=== PATIENT | female | born 1950 | race Caucasian/White ===

== ENCOUNTER 2024-03-19 05:34 | Outpatient (REF) | payer OTHER, SELFPAY ==
[2024-03-19 05:40] LABS: MANUAL DIFF FLAG NO
[2024-03-19 06:03] LABS: Basophils Percent Auto 0.7 % (0-2); Eosinophils Absolute Auto 0.2 X10*3/uL (0.0-0.4); Eosinophils Percent Auto 3.3 % (0-4); Hematocrit 35.9 % (37.0-47.0); Imm Gran Abs Auto 0.03 X10*3/uL (0.00-0.03); Imm Gran Pct Auto 0.5 % (0.0-0.4); Lymphocytes Absolute Auto 1.1 X10*3/uL (1.2-4.9); Lymphocytes Percent Auto 19.5 % (20-40); Mean Corpuscular HGB Conc 30.6 g/dl (31.0-35.0); Mean Corpuscular Volume 78.4 fL (80.0-98.0); Mean Platelet Volume 10.6 fL (9.4-12.3); Monocytes Absolute Auto 0.5 X10*3/uL (0.1-1.2); Monocytes Percent Auto 9.6 % (2-11); Neutrophils Absolute Auto 3.7 x10*3/uL (2.0-8.3); Neutrophils Percent Auto 66.4 % (45-73); Platelet Count 264 X10*3/uL (160-400); Red Blood Count 4.58 X10*6/uL (4.20-5.50); Red Cell Distribution Width 26.5 % (11.0-16.0); White Blood Count 5.5 X10*3/uL (4.8-10.8)
[2024-03-19 06:24] LABS: Alanine Aminotransferase 12 U/L (0-31); Albumin Level 3.8 g/dL (3.5-5.0); Alkaline Phosphatase 65 U/L (39-117); Anion Gap 15 (12-20); Aspartate Amino Transferase 14 U/L (5-31); Bilirubin Total 0.5 mg/dL (0.0-1.0); Blood Urea Nitrogen 19 mg/dL (9-16); Calcium 9.5 mg/dL (8.4-10.2); Carbon Dioxide 25 mmol/L (22-29); Chloride 107 mmol/L (96-108); Estimated Glomerular Filt Rate > 60; Glucose Random 99 mg/dL (60-115); Potassium 3.5 mmol/L (3.3-5.1); Sodium 143 mmol/L (135-145); Total Protein 6.6 g/dL (6.5-8.0)
== END 2024-03-19 05:35 | disposition home or self-care (01) ==
LOC: HO.MMNH1L 05:34
PROVIDERS: Visit Provider Hospitalist
DX: E03.9 Hypothyroidism, unspecified (principal); I10 Essential (primary) hypertension; I63.9 Cerebral infarction, unspecified
CPT/HCPCS: 36415; 80053; 85025

== ENCOUNTER 2024-03-24 06:46 | Outpatient (REF) | payer OTHER, SELFPAY ==
[2024-03-24 06:04] LABS: MANUAL DIFF FLAG NO
[2024-03-24 07:14] LABS: Basophils Absolute Auto 0.1 X10*3/uL (0.0-0.2); Basophils Percent Auto 0.9 % (0-2); Eosinophils Absolute Auto 0.2 X10*3/uL (0.0-0.4); Eosinophils Percent Auto 3.3 % (0-4); Hematocrit 34.2 % (37.0-47.0); Hemoglobin 10.3 g/dl (12.0-16.0); Imm Gran Abs Auto 0.03 X10*3/uL (0.00-0.03); Imm Gran Pct Auto 0.4 % (0.0-0.4); Lymphocytes Absolute Auto 1.3 X10*3/uL (1.2-4.9); Lymphocytes Percent Auto 19.1 % (20-40); Mean Corpuscular HGB Conc 30.1 g/dl (31.0-35.0); Mean Corpuscular Hemoglobin 24.2 pg (27.0-33.0); Mean Corpuscular Volume 80.3 fL (80.0-98.0); Mean Platelet Volume 11.2 fL (9.4-12.3); Monocytes Absolute Auto 0.7 X10*3/uL (0.1-1.2); Monocytes Percent Auto 11.1 % (2-11); Neutrophils Absolute Auto 4.4 x10*3/uL (2.0-8.3); Neutrophils Percent Auto 65.2 % (45-73); Platelet Count 236 X10*3/uL (160-400); Red Blood Count 4.26 X10*6/uL (4.20-5.50); Red Cell Distribution Width 25.5 % (11.0-16.0); White Blood Count 6.7 X10*3/uL (4.8-10.8)
[2024-03-24 07:20] LABS: Anion Gap 13 (12-20); Blood Urea Nitrogen 23 mg/dL (9-16); Calcium 8.8 mg/dL (8.4-10.2); Carbon Dioxide 26 mmol/L (22-29); Chloride 109 mmol/L (96-108); Estimated Glomerular Filt Rate > 60; Glucose Random 81 mg/dL (60-115); Potassium 3.7 mmol/L (3.3-5.1); Sodium 144 mmol/L (135-145)
== END 2024-03-24 06:47 | disposition home or self-care (01) ==
LOC: HO.MMNH1L 06:46
PROVIDERS: Visit Provider Hospitalist
DX: I10 Essential (primary) hypertension (principal); E03.9 Hypothyroidism, unspecified; I63.9 Cerebral infarction, unspecified
CPT/HCPCS: 36415; 80048; 85025

== ENCOUNTER 2024-03-31 06:27 | Outpatient (REF) | payer OTHER, SELFPAY ==
[2024-03-31 06:01] LABS: MANUAL DIFF FLAG NO
[2024-03-31 07:06] LABS: Basophils Percent Auto 0.6 % (0-2); Eosinophils Absolute Auto 0.2 X10*3/uL (0.0-0.4); Eosinophils Percent Auto 2.8 % (0-4); Hematocrit 32.4 % (37.0-47.0); Hemoglobin 10.1 g/dl (12.0-16.0); Imm Gran Abs Auto 0.03 X10*3/uL (0.00-0.03); Imm Gran Pct Auto 0.4 % (0.0-0.4); Lymphocytes Absolute Auto 1.5 X10*3/uL (1.2-4.9); Lymphocytes Percent Auto 21.2 % (20-40); Mean Corpuscular HGB Conc 31.2 g/dl (31.0-35.0); Mean Corpuscular Volume 80.2 fL (80.0-98.0); Mean Platelet Volume 11.5 fL (9.4-12.3); Monocytes Absolute Auto 0.6 X10*3/uL (0.1-1.2); Monocytes Percent Auto 7.9 % (2-11); Neutrophils Absolute Auto 4.8 x10*3/uL (2.0-8.3); Neutrophils Percent Auto 67.1 % (45-73); Platelet Count 242 X10*3/uL (160-400); Red Blood Count 4.04 X10*6/uL (4.20-5.50); Red Cell Distribution Width 25.5 % (11.0-16.0); White Blood Count 7.1 X10*3/uL (4.8-10.8)
[2024-03-31 07:29] LABS: Anion Gap 11 (12-20); Blood Urea Nitrogen 18 mg/dL (9-16); Calcium 8.7 mg/dL (8.4-10.2); Carbon Dioxide 25 mmol/L (22-29); Chloride 110 mmol/L (96-108); Estimated Glomerular Filt Rate > 60; Glucose Random 78 mg/dL (60-115); Potassium 3.5 mmol/L (3.3-5.1); Sodium 142 mmol/L (135-145)
== END 2024-03-31 06:28 | disposition home or self-care (01) ==
LOC: HO.MMNH1L 06:27
PROVIDERS: Visit Provider Hospitalist
DX: E03.9 Hypothyroidism, unspecified (principal); I10 Essential (primary) hypertension; I63.9 Cerebral infarction, unspecified
CPT/HCPCS: 36415; 80048; 85025

== ENCOUNTER 2024-04-07 06:23 | Outpatient (REF) | payer OTHER, SELFPAY ==
[2024-04-07 06:02] LABS: MANUAL DIFF FLAG NO
[2024-04-07 07:02] LABS: Basophils Percent Auto 0.5 % (0-2); Eosinophils Absolute Auto 0.2 X10*3/uL (0.0-0.4); Hematocrit 34.8 % (37.0-47.0); Hemoglobin 10.4 g/dl (12.0-16.0); Imm Gran Abs Auto 0.04 X10*3/uL (0.00-0.03); Imm Gran Pct Auto 0.5 % (0.0-0.4); Lymphocytes Absolute Auto 1.4 X10*3/uL (1.2-4.9); Mean Corpuscular HGB Conc 29.9 g/dl (31.0-35.0); Mean Corpuscular Hemoglobin 24.5 pg (27.0-33.0); Mean Corpuscular Volume 82.1 fL (80.0-98.0); Mean Platelet Volume 11.8 fL (9.4-12.3); Monocytes Absolute Auto 0.7 X10*3/uL (0.1-1.2); Monocytes Percent Auto 8.3 % (2-11); Neutrophils Absolute Auto 5.5 x10*3/uL (2.0-8.3); Neutrophils Percent Auto 69.7 % (45-73); Platelet Count 247 X10*3/uL (160-400); Red Blood Count 4.24 X10*6/uL (4.20-5.50); Red Cell Distribution Width 25.5 % (11.0-16.0); White Blood Count 7.9 X10*3/uL (4.8-10.8)
[2024-04-07 07:24] LABS: Anion Gap 12 (12-20); Blood Urea Nitrogen 24 mg/dL (9-16); Carbon Dioxide 23 mmol/L (22-29); Chloride 110 mmol/L (96-108); Estimated Glomerular Filt Rate > 60; Glucose Random 67 mg/dL (60-115); Potassium 3.6 mmol/L (3.3-5.1); Sodium 141 mmol/L (135-145)
== END 2024-04-07 06:24 | disposition home or self-care (01) ==
LOC: HO.MMNH1L 06:23
PROVIDERS: Visit Provider Hospitalist
DX: I10 Essential (primary) hypertension (principal); E03.9 Hypothyroidism, unspecified
CPT/HCPCS: 36415; 80048; 85025

== ENCOUNTER 2024-06-02 07:06 | Outpatient (REF) | payer OTHER, SELFPAY ==
[2024-06-02 06:17] LABS: MANUAL DIFF FLAG NO
[2024-06-02 07:00] LABS: Basophils Percent Auto 0.6 % (0-2); Eosinophils Absolute Auto 0.2 X10*3/uL (0.0-0.4); Eosinophils Percent Auto 3.4 % (0-4); Hematocrit 35.8 % (37.0-47.0); Hemoglobin 11.1 g/dl (12.0-16.0); Imm Gran Abs Auto 0.03 X10*3/uL (0.00-0.03); Imm Gran Pct Auto 0.4 % (0.0-0.4); Lymphocytes Absolute Auto 1.5 X10*3/uL (1.2-4.9); Lymphocytes Percent Auto 21.8 % (20-40); Mean Corpuscular Hemoglobin 26.8 pg (27.0-33.0); Mean Corpuscular Volume 86.5 fL (80.0-98.0); Mean Platelet Volume 11.7 fL (9.4-12.3); Monocytes Absolute Auto 0.7 X10*3/uL (0.1-1.2); Monocytes Percent Auto 9.9 % (2-11); Neutrophils Absolute Auto 4.5 x10*3/uL (2.0-8.3); Neutrophils Percent Auto 63.9 % (45-73); Platelet Count 255 X10*3/uL (160-400); Red Blood Count 4.14 X10*6/uL (4.20-5.50); Red Cell Distribution Width 18.1 % (11.0-16.0); White Blood Count 7.1 X10*3/uL (4.8-10.8)
[2024-06-02 07:07] LABS: Anion Gap 13 (12-20); Blood Urea Nitrogen 23 mg/dL (9-16); Calcium 8.9 mg/dL (8.4-10.2); Carbon Dioxide 24 mmol/L (22-29); Chloride 109 mmol/L (96-108); Estimated Glomerular Filt Rate > 60; Glucose Random 82 mg/dL (60-115); Potassium 3.7 mmol/L (3.3-5.1); Sodium 142 mmol/L (135-145)
== END 2024-06-02 07:07 | disposition home or self-care (01) ==
LOC: HO.MMNH1L 07:06
PROVIDERS: Visit Provider Nurse Practitioner
DX: I48.0 Paroxysmal atrial fibrillation (principal); I10 Essential (primary) hypertension; D64.9 Anemia, unspecified
CPT/HCPCS: 36415; 80048; 85025

== ENCOUNTER 2024-06-09 06:41 | Outpatient (REF) | payer OTHER, SELFPAY ==
[2024-06-09 06:04] LABS: MANUAL DIFF FLAG NO
[2024-06-09 06:15] LABS: Basophils Percent Auto 0.6 % (0-2); Eosinophils Absolute Auto 0.3 X10*3/uL (0.0-0.4); Eosinophils Percent Auto 4.4 % (0-4); Hematocrit 34.9 % (37.0-47.0); Hemoglobin 11.1 g/dl (12.0-16.0); Imm Gran Abs Auto 0.04 X10*3/uL (0.00-0.03); Imm Gran Pct Auto 0.6 % (0.0-0.4); Lymphocytes Absolute Auto 1.5 X10*3/uL (1.2-4.9); Lymphocytes Percent Auto 23.9 % (20-40); Mean Corpuscular HGB Conc 31.8 g/dl (31.0-35.0); Mean Corpuscular Hemoglobin 27.5 pg (27.0-33.0); Mean Corpuscular Volume 86.4 fL (80.0-98.0); Monocytes Absolute Auto 0.7 X10*3/uL (0.1-1.2); Monocytes Percent Auto 10.4 % (2-11); Neutrophils Absolute Auto 3.8 x10*3/uL (2.0-8.3); Neutrophils Percent Auto 60.1 % (45-73); Platelet Count 254 X10*3/uL (160-400); Red Blood Count 4.04 X10*6/uL (4.20-5.50); White Blood Count 6.3 X10*3/uL (4.8-10.8)
[2024-06-09 06:30] LABS: Anion Gap 12 (12-20); Blood Urea Nitrogen 25 mg/dL (9-16); Calcium 8.8 mg/dL (8.4-10.2); Carbon Dioxide 23 mmol/L (22-29); Chloride 112 mmol/L (96-108); Estimated Glomerular Filt Rate > 60; Glucose Random 86 mg/dL (60-115); Potassium 3.8 mmol/L (3.3-5.1); Sodium 143 mmol/L (135-145)
== END 2024-06-09 06:42 | disposition home or self-care (01) ==
LOC: HO.MMNH1L 06:41
PROVIDERS: Visit Provider Nurse Practitioner
DX: I48.0 Paroxysmal atrial fibrillation (principal); I10 Essential (primary) hypertension; D64.9 Anemia, unspecified
CPT/HCPCS: 36415; 80048; 85025

== ENCOUNTER 2024-06-16 06:14 | Outpatient (REF) | payer OTHER, SELFPAY ==
[2024-06-16 06:03] LABS: MANUAL DIFF FLAG NO
[2024-06-16 06:31] LABS: Basophils Percent Auto 0.5 % (0-2); Eosinophils Absolute Auto 0.3 X10*3/uL (0.0-0.4); Eosinophils Percent Auto 3.6 % (0-4); Hematocrit 35.1 % (37.0-47.0); Hemoglobin 11.1 g/dl (12.0-16.0); Imm Gran Abs Auto 0.03 X10*3/uL (0.00-0.03); Imm Gran Pct Auto 0.4 % (0.0-0.4); Lymphocytes Absolute Auto 1.4 X10*3/uL (1.2-4.9); Lymphocytes Percent Auto 18.3 % (20-40); Mean Corpuscular HGB Conc 31.6 g/dl (31.0-35.0); Mean Corpuscular Hemoglobin 27.4 pg (27.0-33.0); Mean Corpuscular Volume 86.7 fL (80.0-98.0); Mean Platelet Volume 11.5 fL (9.4-12.3); Monocytes Absolute Auto 0.7 X10*3/uL (0.1-1.2); Neutrophils Percent Auto 67.2 % (45-73); Platelet Count 249 X10*3/uL (160-400); Red Blood Count 4.05 X10*6/uL (4.20-5.50); Red Cell Distribution Width 16.2 % (11.0-16.0); White Blood Count 7.4 X10*3/uL (4.8-10.8)
[2024-06-16 06:48] LABS: Anion Gap 12 (12-20); Blood Urea Nitrogen 24 mg/dL (9-16); Carbon Dioxide 24 mmol/L (22-29); Chloride 111 mmol/L (96-108); Estimated Glomerular Filt Rate > 60; Glucose Random 82 mg/dL (60-115); Potassium 3.6 mmol/L (3.3-5.1); Sodium 143 mmol/L (135-145)
== END 2024-06-16 06:15 | disposition home or self-care (01) ==
LOC: HO.MMNH1L 06:14
PROVIDERS: Visit Provider Nurse Practitioner
DX: I48.0 Paroxysmal atrial fibrillation (principal); I10 Essential (primary) hypertension; D64.9 Anemia, unspecified
CPT/HCPCS: 36415; 80048; 85025

== ENCOUNTER 2024-07-14 06:13 | Outpatient (REF) | payer OTHER, SELFPAY ==
[2024-07-14 06:15] LABS: MANUAL DIFF FLAG NO
--- OUTSIDE RECORDS SUMMARY | 2024-07-14 06:15 | XMS_ITS | Clinical Summary ---
[facility] Address [address] [place] [address] Care Team Providers Care Accreditation Manager Name Role Phone Yuli Rosen MD Primary Care Provider [phone] Allergies No known active allergies Medications Medication Sig Dispensed Refills Start Date End Date Status amLODIPine (NORVASC) 5 mg tablet Take 1 tablet (5 mg total) by mouth 1 (one) time each day. 12/07/2023 Active atorvastatin (LIPITOR) 40 mg tablet Take 1 tablet (40 mg total) by mouth 1 (one) time each day. 01/02/2024 Active dronedarone (Multaq) 400 mg tablet Take 1 tablet (400 mg total) by mouth 2 (two) times a day. 10/03/2023 Active levothyroxine (SYNTHROID, LEVOTHROID) 88 mcg tablet Take 1 tablet (88 mcg total) by mouth 1 (one) time each day. 12/07/2023 Active rivaroxaban (Xarelto) 20 mg tablet Take 1 Tablet by mouth Daily before dinner. 10/03/2023 Active Active Problems Problem Noted Date Diagnosed Date Hypertension 06/15/2024 Overview (06/15/2024): Last Assessment & Plan: Patient blood pressure somewhat robust in office today, but well-controlled on chart review. For now, no changes in her current treatment plan with amlodipine. Coronary artery disease invo lving [place] coronary artery of [place] heart without angina pectoris 10/03/2023 Overview (06/15/2024): Type II NSTEMI 08/2022 in the setting of A-fib with RVR Proximal D1 70% stenosis managed medically Last Assessment & Plan: The patient has nonobstructive coronary artery disease not felt to be the etiology of her elevated troponin during her most recent hospitalization. Instead, it is felt that she has a type II demand mediated NSTEMI in the setting of A-fib with RVR. Therefore, in addition to ongoing medical therapy with her statin, maintenance of normal sinus rhythm is imperative. For now, continue her rhythm control strategy with Multaq as above. If she continues to have episodes of atrial fibrillation, would refer to EP for consideration of alternative strategy from the normal sinus rhythm. Demand ischemia 09/05/2023 Overview (06/15/2024): 3/24 NSTEMI with rapid afib Osteoporosis 04/02/2022 Overview (06/15/2024): 10 T score spine -2.5 hip -3.1 Aortic stenosis 02/22/2022 Overview (06/15/2024): 8 mild and AI, mild MS and MR 2/24 mild to mod COVID-19 virus infection 02/02/2022 Overview (06/15/2024): 8.24.22 Thoracic aortic aneurysm 02/02/2022 Overview (06/15/2024): 8/22 3.7 cm, mild dilatation Atrial fibrillation and flutter 09/16/2021 Overview (06/15/2024): Anticoagulated with Xarelto Rhythm control strategy with Multaq Last Assessment & Plan: Patient had another episode of A-fib with RVR in the setting of running out of her Multaq for a couple of days. She remains anticoagulated with Xarelto. He had a long discussion about the pathophysiology and risks of atrial fibrillation. All questions were answered. HLD (hyperlipidemia) 09/16/2021 Overview (06/15/2024): Last Assessment & Plan: Patient's lipid profile is reasonably well-controlled on current dose statin. It is not clear if her most recent lipid profile is on her current 40 mg atorvastatin. The indication and mechanism of action for statins is discussed with the patient. All her questions were answered. She agrees to continue this medication. Can update her lipid profile if not already done by her PCP at her next visit. Seizure 09/16/2021 Overview (06/15/2024): With subarachnoid bleed Subarachnoid hematoma 09/16/2021 Overview (06/15/2024): Secondary to aneurysm Fowler's esophagus 08/20/2018 Iron deficiency anemia 07/19/2018 Vulvar cancer, carcinoma 12/08/2016 Overview (06/15/2024): Scheduled radical vulvectomy at [facility] Dr. 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 Lichen sclerosus 05/01/2013 Hypothyroidism 10/02/2012 Encounters Date Type Department Care Team Description 06/06/2024 Telephone [facility] Cardiology [facility] [address] [facility] [address] [place] [address] Nishi Gotti NP 05/06/2024 Telephone Adult Medicine [address] [id number] Josep Rocha LPN Hospital Follow-up (Please book a hospital follow up ) from Last 3 Months Immunizations Name Administration Dates Next Due Diptheria & Tetanus, 6wks to less than 7yo 02/22 Surgical History Surgery Date Site/Laterality Comments OVARIAN CYST REMOVAL PROCEDURE: HI OVARIAN CYSTECTOMY UNI/BI; COMMENT: laproscopic COLONOSCOPY 12/24/2014 PROCEDURE: HISTORICAL COLONOSCOPY; COMMENT: Diverticulosis, hemorrhoids ESOPHAGOGASTRODUODENOSCOPY 12/24/2014 PROCEDURE: HI ESOPHAGOGASTRODUODENOSCOPY TRANSORAL DIAGNOSTIC; COMMENT: Barretts esophagus, hiatal hernia, erosive gastritis OTHER SURGICAL HISTORY 12/29/2016 N/A PROCEDURE: HI VULVECTOMY RADICAL COMPLETE; COMMENT: vulvar carcinoma OTHER SURGICAL HISTORY PROCEDURE: HISTORY OTHER; COMMENT: post aneurysm coiling COLONOSCOPY 07/2018 PROCEDURE: HISTORICAL COLONOSCOPY Medical History Medical History Date Comments History of stroke 06/11/2010 DX:History of stroke; COMMENT: had left sided weakness, recovered completerly Hypertension DX:Hypertension Hypothyroidism 10/02/2012 DX:Hypothyroidis m COVID-19 virus infection 02/02/2022 DX:COVI D-19 virus infection; COMMENT: 02.01.22 Thoracic aortic aneurysm (CMS/HCC) 02/02/2022 DX:Thoracic aortic aneurysm (HCC); COMMENT: 01/30 3.7 cm, mild dilatation Aortic stenosis 02/22/2022 DX:Aortic stenos is; COMMENT: 01/30 mild and AI, mild MS and MR Osteoporosis 04/02/2022 DX:Osteoporosis; COMMENT: 04/01 T score spine -2.5 hip -3.1 Demand ischemia (CMS/HCC) 09/05/2023 DX:Dem and ischemia (HCC); COMMENT: 09/01 NSTEMI with rapid afib Family History Medical History Relation Name Comments Stroke Mother at 47 Other: sinus cancer Sister Breast cancer Neg Hx Colon cancer Neg Hx Ovarian cancer Neg Hx Relation Name Status Comments Father Alive Mother Sister Social History Tobacco Use Types Packs/Day Years Used Date Smoking Tobacco: Former Smokeless Tobacco: Never Alcohol Use Standard Drinks/Week Comments Yes 0 (1 standard drink = 0.6 oz pur e alcohol) Sex and Gender Information Value Date Recorded Sex Assigned at Not on file Gender Identity Not on file Sexual Orientation Not on file Obstetrics History Last Filed Vital Signs Vital Sign Reading Time Taken Comments Blood Pressure 156/80 10/03/2023 1:06 PM EDT Sitting R Arm Pulse 72 10/03/2023 1:06 PM EDT Temperature - - Respiratory Rate - - Oxygen Saturation - - Inhaled Oxygen Concentration - - Weight 77.7 kg (171 lb 3.2 oz) 10/03/2023 1:06 PM EDT Height 154.9 cm (5' 1 ) 10/03/2023 1:06 PM EDT Body Mass Index 32.35 10/03/2023 1:06 PM EDT Plan of Treatment Health Maintenance Due Date Last Done Comments Pneumococcal Vaccine: 65+ Years (1 of 2 - PCV) 02/15/1956 Zoster Vaccines (1 of 2) 1969 RSV Immunization Patients 60 + Years Old (1 - Risk 60-74 years 1-dose series) 2010 DTaP,Tdap,and Td Vaccines (2 - Tdap) 02/23/2016 02/22/2006 COVID-19 Vaccine (3 - Modern a risk series) 11/04/2020 10/07/2020, 09/09/2020 Depression Screening 05/19/2022 Falls Risk Assessment 05/19/2022 Social Influencers of Health Screening 05/19/2022 Influenza Vaccine (#1) 2024 Breast Cancer Screening 03/31/2024 03/31/20, 06/14/2018 Hypertension/CHF/CAD Annual BMP Blood Test 06/01/2024 06/01/2023 Cholesterol Screening (Lipid Panel) 06/01/2028 06/01/2023 Colorectal Cancer Screening: Colonoscopy 07/30/2028 07/30/2018 Osteoporosis Screening (Bone Density Screening) 03/31/2032 03/31/2022, 06/17/2018 Hepatitis C Screening Completed 05/01/2013 HIB Vaccines Aged Out No longer eligi ble based on patient's age to complete this topic HPV Vaccines Aged Out No longer eligi ble based on patient's age to complete this topic Hepatitis A Vaccines Aged Out No long er eligible based on patient's age to complete this topic Hepatitis B Vaccines Aged Out No long er eligible based on patient's age to complete this topic IPV Vaccines Aged Out No longer eligi ble based on patient's age to complete this topic MMR Vaccines Aged Out No longer eligi ble based on patient's age to complete this topic Meningococcal ACWY Vaccine Aged Out N o longer eligible based on patient's age to complete this topic RSV Immunization Patients Under 20 months Aged Out No longer eligible b ased on patient's age to complete this topic Varicella Vaccines Aged Out No longer eligible based on patient's age to complete this topic Procedures Procedure Name Priority Date/Time Associated Diagnosis Comments HM ANNUAL BMP BLOOD TEST Routine 06/01/2023 LIPID PANEL Routine 06/01/2023 DXA BONE DENSITY STUDY 1+ SITS AXIAL SKEL Routine 03/31/2022 10:02 AM EDT Unspecified menopausal and perimenopausal disorder SCREENING MAMMOGRAPHY BI 2-VIEW BREAST INC CAD Routine 03/31/2022 9:50 AM EDT Encounter for screening mammogram for malignant neoplasm of breast COLONOSCOPY Routine 07/30/2018 HEPATITIS C SCREENING Routine 05/01/2013 from Last 3 Months or Most Recently Relevant to Health Maintenance Results * Annual BMP Blood Test (06/01/2023) Annual BMP Blood Test abstracted Historical Provider MD MARGARETH SINGH E * (ABNORMAL) Lipid panel (06/01/2023) LDL/HDL Ratio 2 0 - 4 Triglycerides 88 0 - 150 mg/dL Cholesterol 246(A) 0 - 200 mg/dL HDL 127 40 mg/dL LDL Cholesterol 102(A) 0 - 100 mg/dL Blood Venous blood specimen / Unknown Historical Provider LAB BLOOD ORDERAB LES * DXA BONE DENSITY STUDY 1+ SITS AXIAL SKEL (03/31/2022 10:02 AM EDT) Anatomical Region Laterality Modality Bone Densitometr y 09/29/2021 11:3 1 AM EDT Narrative 03/31/2022 11:58 AM EDT BONE DENSITY SCAN (DEXA): FINDINGS: Lumbar Spine T-score is -2.5. ?? (SD relative to 20-29 y/o adult) Z-score is -0.3. ??(SD relative to age matched peers) This is considered osteoporosis by WHO criteria. Left Hip T-score is -3.1. Z-score is -1.2. This is considered osteoporosis by WHO criteria. Comparison exam(s): None. IMPRESSION: IMPRESSION: ?? Osteoporosis by WHO criteria. The [facility] Department of Internal Medicine recommends using National Osteoporosis Foundation (NOF) guidelines in treatment decisions related to osteoporosis. NOF guidelines suggest considering treatment for postmenopausal women and men aged 50 or older presenting with the following: History of hip or vertebral fracture. T-score = -2.5 (DXA) at the femoral neck, total hip, or spine, after appropriate evaluation to exclude secondary causes. Low bone mass (T-score between -1.0 and -2.5 at the femoral neck or spine) AND a 10-year probability of a hip fracture = 3% OR a 10-year probability of a major osteoporosis-related fracture = 20% based on the [place]-adapted WHO algorithm Please note that all treatment decisions require clinical judgment and consideration of individual patient factors, including patient preferences, co-morbidities, previous drug use, risk factors not captured in the FRAX model (e.g., frailty, falls, vitamin D deficiency, increased bone turnover, interval significant decline in bone density) and possible under- or over-estimation of fracture risk by FRAX. Optional alternative screening schedule based on hanane Syed al., [facility] June 29, 2011 for patients with osteopenia (based on hip BMD T-score) is as follows: * ??advanced osteopenia (T scores -2.00 to -2.49), BMD testing every year * ??moderate osteopenia (T scores -1.50 to -1.99), BMD testing every 5 years mild osteopenia or normal BMD (T scores -1.50 and higher), BMD testing every 15 years Procedure Note Carol Alejandre MD - 05/30/2022 BONE DENSITY SCAN (DEXA): FINDINGS: Lumbar Spine T-score is -2.5. (SD relative to 20-29 y/o adult) Z-score is -0.3. (SD relative to age matched peers) This is considered osteoporosis by WHO criteria. Left Hip T-score is -3.1. Z-score is -1.2. This is considered osteoporosis by WHO criteria. Comparison exam(s): None. IMPRESSION: IMPRESSION: Osteoporosis by WHO criteria. The [facility] Department of Internal Medicine recommendsusing National Osteoporosis Foundation (NOF) guidelines in treatment decisions related toosteoporosis. NOF guidelines suggest considering treatment for postmenopausal women and menaged 50 or older presenting with the following: History of hip or vertebral fracture. T-score = -2.5 (DXA) at the femoral neck, total hip, or spine, afterappropriate evaluation to exclude secondary causes. Low bone mass (T-score between -1.0 and -2.5 at the femoral neck or spine)AND a 10-year probability of a hip fracture = 3% OR a 10-year probability of a majorosteoporosis-related fracture = 20% based on the [place]-adapted WHO algorithm Please note that all treatment decisions require clinical judgment andconsideration of individual patient factors, including patient preferences, co- morbidities,previous drug use, risk factors not captured in the FRAX model (e.g., frailty, falls, vitaminD deficiency, increased bone turnover, interval significant decline in bone density) andpossible under- or over-estimation of fracture risk by FRAX. Optional alternative screening schedule based on rogelio Syed., [facility] for patients with osteopenia (based on hip BMD T-score) is as follows: * advanced osteopenia (T scores -2.00 to -2.49), BMD testing every year * moderate osteopenia (T scores -1.50 to -1.99), BMD testing every 5years mild osteopenia or normal BMD (T scores -1.50 and higher), BMD testingevery 15 years Yuli Rosen MD IMG DXA PROCEDURES * SCREENING MAMMOGRAPHY BI 2-VIEW BREAST INC CAD (03/31/2022 9:50 AM EDT) Anatomical Region Laterality Modality Radiographic Luz ging 09/29/2021 11:3 1 AM EDT Narrative 03/31/2022 6:20 PM EDT This is a summary report. The complete report is available in the patient's medical record. If you cannot access the medical record, please contact the sending organization for a detailed fax or copy. Exam: Screening mammogram Findings: Digital bilateral full-field screening mammography is performed with tomosynthesis and interpreted with the aid of computer-aided detection. ??Comparison is made with 08/28/2014 and 03/12/2006. ?? Breast parenchyma is composed of scattered fibroglandular densities. ??No new suspicious mass, architectural distortion, or suspicious calcifications. Impression: No mammographic evidence of malignancy. BI-RADS 1 - negative Procedure Note Carol Alejandre MD - 05/30/2022 This is a summary report. The complete report is available in thepatient's medical record. If you cannot access the medical record, pleasecontact the sending organization for a detailed fax or copy. Exam: Screening mammogram Findings: Digital bilateral full-field screening mammography is performedwith tomosynthesis and interpreted with the aid of computer-aideddetection. Comparison is made with 08/28/2014 and 03/12/2006. Breast parenchyma is composed of scattered fibroglandular densities. Nonew suspicious mass, architectural distortion, or suspiciouscalcifications. Impression: No mammographic evidence of malignancy. BI-RADS 1 - negative Yuli Rosen MD IMG XR PROCEDURES * Colonoscopy (07/30/2018) Colonoscopy no interpreta tion,abstr acted Anatomical Region Laterality Modality Other Historical Provider MD MARGARETH Bassett * Hepatitis C Screening (05/01/2013) Hepatitis C Screening abstracted Historical Provider MD MARGARETH Bassett from Last 3 Months or Most Recently Relevant to Health Maintenance Care Teams Accreditation Manager Relationship Specialty Start Date End Date Yuli Rosen MD [address] [place] [address] PCP - General Internal Medicine 04/21/21
--- OUTSIDE RECORDS SUMMARY | 2024-07-14 06:15 | XMS_ITS | Clinical Summary ---
Author Organization [facility] Address [address] [place] [address] Care Team Providers Care Alarm Mechanism Adjuster Name Role Phone Yuli Rosen MD Primary Care Provider [phone] Allergies No known active allergies Medications Medication Sig Dispensed Refills Start Date End Date Status levothyroxine (SYNTHROID) tablet 88 mcg Take 88 mcg by mouth every morning on an empty stomach. 0 Active amLODIPine (NORVASC) tablet 5 mg Take 5 mg by mouth daily. 0 Active atorvastatin (LIPITOR) tablet 40 mg Take 40 mg by mouth daily. 0 Active omeprazole (PriLOSEC) 20 MG capsule Take 20 mg by mouth daily. 0 Active apixaban (ELIQUIS) 5 MG TABS tablet Take by mouth every 12 (twelve) hours. 0 Active Active Problems No known active problems Social History Tobacco Use Types Packs/Day Years Used Date Smoking Tobacco: Never Smokeless Tobacco: Never Alcohol Use Standard Drinks/Week Comments No 0 (1 standard drink = 0.6 oz pur e alcohol) Sex and Gender Information Value Date Recorded Sex Assigned at Not on file Gender Identity Not on file Sexual Orientation Not on file Last Filed Vital Signs Vital Sign Reading Time Taken Comments Blood Pressure 145/68 08/08/2021 10:00 AM EST Pulse 81 08/08/2021 10:00 AM EST Temperature 37.1 ??C (98.7 ??F) 08/08/2021 10:[address] Respiratory Rate - - Oxygen Saturation 100% 08/08/2021 10:00 AM EST Inhaled Oxygen Concentration - - Weight 75.8 kg (167 lb) 08/08/2021 10:00 AM EST Height 152.4 cm (5') 08/08/2021 10:00 AM EST Body Mass Index 32.61 08/08/2021 10:00 AM EST Plan of Treatment Health Maintenance Due Date Last Done Comments Hepatitis C Screening 1950 COVID-19 Vaccine (#1) 1950 Depression Screening 1962 Preventative Health Evaluation 02/15/1968 DTap / Tdap / Td (1 - Tdap) 1969 Colon Cancer Screening (Colonoscopy) 1995 Breast Cancer Screening (Mammogram) 02/15/2000 Shingrix-Zoster Vaccine (1 of 2) 02/15/2000 Fall Risk Assessment 2015 Osteoporosis Screening (DEXA Scan) 2015 Pneumococcal Vaccine (1 of 1 - PCV) 2015 Influenza Vaccine (#1) 2024 RSV Adult > 60+ Yrs or Pregn ant (1 - 1-dose 75+ series) 2025 Hepatitis B Vaccines Aged Out No long er eligible based on patient's age to complete this topic RSV Ped < 20 months Aged Out No longe r eligible based on patient's age to complete this topic Care Teams Alarm Mechanism Adjuster Relationship Specialty Start Date End Date Yuli Rosen MD PCP - General Internal Medicine 08/08/21
[2024-07-14 06:39] LABS: Basophils Percent Auto 0.5 % (0-2); Eosinophils Absolute Auto 0.3 X10*3/uL (0.0-0.4); Eosinophils Percent Auto 5.1 % (0-4); Hematocrit 34.1 % (37.0-47.0); Imm Gran Abs Auto 0.02 X10*3/uL (0.00-0.03); Imm Gran Pct Auto 0.3 % (0.0-0.4); Lymphocytes Absolute Auto 1.6 X10*3/uL (1.2-4.9); Lymphocytes Percent Auto 26.2 % (20-40); Mean Corpuscular HGB Conc 32.3 g/dl (31.0-35.0); Mean Corpuscular Hemoglobin 27.6 pg (27.0-33.0); Mean Corpuscular Volume 85.7 fL (80.0-98.0); Mean Platelet Volume 11.8 fL (9.4-12.3); Monocytes Absolute Auto 0.7 X10*3/uL (0.1-1.2); Monocytes Percent Auto 11.3 % (2-11); Neutrophils Absolute Auto 3.4 x10*3/uL (2.0-8.3); Neutrophils Percent Auto 56.6 % (45-73); Platelet Count 281 X10*3/uL (160-400); Red Blood Count 3.98 X10*6/uL (4.20-5.50)
[2024-07-14 06:59] LABS: Alanine Aminotransferase 13 U/L (0-31); Albumin Level 3.4 g/dL (3.5-5.0); Alkaline Phosphatase 68 U/L (39-117); Anion Gap 15 (12-20); Aspartate Amino Transferase 20 U/L (5-31); Bilirubin Total 0.5 mg/dL (0.0-1.0); Blood Urea Nitrogen 25 mg/dL (9-16); Calcium 8.9 mg/dL (8.4-10.2); Carbon Dioxide 23 mmol/L (22-29); Chloride 108 mmol/L (96-108); Estimated Glomerular Filt Rate > 60; Glucose Random 75 mg/dL (60-115); Potassium 3.6 mmol/L (3.3-5.1); Sodium 142 mmol/L (135-145); Total Protein 6.1 g/dL (6.5-8.0)
[2024-07-14 07:14] LABS: TSH reflex Free T4 0.09 uIU/mL (0.32-4.0)
[2024-07-14 08:34] LABS: Free T4 (Free Thyroxine) 1.73 ng/dL (0.71-1.85)
== END 2024-07-14 06:14 | disposition home or self-care (01) ==
LOC: HO.MMNH1L 06:13
PROVIDERS: Visit Provider Nurse Practitioner
DX: I69.351 Hemiplegia and hemiparesis following cerebral infarction affecting right dominant side (principal); I48.0 Paroxysmal atrial fibrillation
CPT/HCPCS: 36415; 80053; 84439; 84443; 85025

== ENCOUNTER 2024-09-11 05:39 | Outpatient (REF) | payer OTHER, SELFPAY ==
--- OUTSIDE RECORDS SUMMARY | 2024-09-11 05:41 | XMS_ITS | Clinical Summary ---
[facility] Organization [facility] Address [address] [place] [address] Care Team Providers Care Obstetric Assistant Name Role Phone Yuli Rosen MD Primary Care Provider [phone] Allergies No known active allergies Medications Medication [...] age to complete this topic Care Teams Obstetric Assistant Relationship Specialty Start Date End Date Yuli Rosen MD PCP - General Internal Medicine 08/08/21
[2024-09-11 05:42] LABS: MANUAL DIFF FLAG NO
[2024-09-11 06:10] LABS: Basophils Absolute Auto 0.1 X10*3/uL (0.0-0.2); Basophils Percent Auto 0.7 % (0-2); Eosinophils Absolute Auto 0.3 X10*3/uL (0.0-0.4); Eosinophils Percent Auto 4.1 % (0-4); Hematocrit 32.3 % (37.0-47.0); Hemoglobin 10.4 g/dl (12.0-16.0); Imm Gran Abs Auto 0.03 X10*3/uL (0.00-0.03); Imm Gran Pct Auto 0.4 % (0.0-0.4); Lymphocytes Absolute Auto 1.4 X10*3/uL (1.2-4.9); Lymphocytes Percent Auto 19.7 % (20-40); Mean Corpuscular HGB Conc 32.2 g/dl (31.0-35.0); Mean Corpuscular Hemoglobin 27.6 pg (27.0-33.0); Mean Corpuscular Volume 85.7 fL (80.0-98.0); Mean Platelet Volume 11.3 fL (9.4-12.3); Monocytes Absolute Auto 0.6 X10*3/uL (0.1-1.2); Neutrophils Absolute Auto 4.7 x10*3/uL (2.0-8.3); Neutrophils Percent Auto 66.1 % (45-73); Platelet Count 293 X10*3/uL (160-400); Red Blood Count 3.77 X10*6/uL (4.20-5.50); Red Cell Distribution Width 14.8 % (11.0-16.0); White Blood Count 7.2 X10*3/uL (4.8-10.8)
[2024-09-11 06:23] LABS: Alanine Aminotransferase 13 U/L (0-31); Albumin Level 3.3 g/dL (3.5-5.0); Alkaline Phosphatase 82 U/L (39-117); Anion Gap 9 (12-20); Aspartate Amino Transferase 18 U/L (5-31); Bilirubin Total 0.5 mg/dL (0.0-1.0); Blood Urea Nitrogen 21 mg/dL (9-16); Calcium 8.9 mg/dL (8.4-10.2); Carbon Dioxide 25 mmol/L (22-29); Chloride 112 mmol/L (96-108); Cholesterol 113 mg/dL (<200); Estimated Glomerular Filt Rate > 60; Glucose Random 86 mg/dL (60-115); HDL Cholesterol 50 mg/dL (>40); LDL Cholesterol Calculated 51 mg/dL (<100); Potassium 4.1 mmol/L (3.3-5.1); Sodium 142 mmol/L (135-145); Total Protein 5.8 g/dL (6.5-8.0); Triglycerides 61 mg/dL (<150)
[2024-09-11 06:37] LABS: Thyroid Stimulating Hormone 0.17 uIU/mL (0.32-4.0)
== END 2024-09-11 05:40 | disposition home or self-care (01) ==
LOC: HO.MMNH3L 05:39
PROVIDERS: Visit Provider Student in an Organized Health Care Education/Training Program
DX: I10 Essential (primary) hypertension (principal)
CPT/HCPCS: 36415; 80053; 80061; 84443; 85025

== ENCOUNTER 2024-10-02 05:49 | Outpatient (REF) | payer OTHER, SELFPAY ==
--- OUTSIDE RECORDS SUMMARY | 2024-10-02 05:51 | XMS_ITS | Clinical Summary ---
Author Organization [facility] Address [address] [place] [address] Care Team Providers Care Artificial Candy Maker Name Role Phone Yuli Rosen MD Primary Care Provider [phone] Allergies No known active allergies Medications Medication [...] age to complete this topic Care Teams Artificial Candy Maker Relationship Specialty Start Date End Date Yuli Rosen MD PCP - General Internal Medicine 08/08/21
[2024-10-02 06:38] LABS: Anion Gap 12 (12-20); Blood Urea Nitrogen 17 mg/dL (9-16); Calcium 9.3 mg/dL (8.4-10.2); Carbon Dioxide 24 mmol/L (22-29); Chloride 107 mmol/L (96-108); Estimated Glomerular Filt Rate > 60; Glucose Random 97 mg/dL (60-115); Potassium 3.6 mmol/L (3.3-5.1); Sodium 139 mmol/L (135-145)
== END 2024-10-02 05:50 | disposition home or self-care (01) ==
LOC: HO.MMNH3L 05:49
PROVIDERS: Visit Provider Student in an Organized Health Care Education/Training Program
DX: I69.351 Hemiplegia and hemiparesis following cerebral infarction affecting right dominant side (principal)
CPT/HCPCS: 36415; 80048

== ENCOUNTER 2025-01-09 06:52 | Outpatient (REF) | payer OTHER, SELFPAY ==
[2025-01-09 06:54] LABS: MANUAL DIFF FLAG NO
--- OUTSIDE RECORDS SUMMARY | 2025-01-09 06:55 | XMS_ITS | Clinical Summary ---
[facility] Organization [facility] Address [address] [place] [address] Care Team Providers Care Ferry Engineer Name Role Phone Yuli Rosen MD Primary Care Provider [phone] Allergies No known active allergies Medications Medication [...] 81 08/08/2021 10:00 AM EST Temperature 37.1 C (98.7 F) 08/08/2021 10:00 AM EST Respiratory Rate - - Oxygen Saturation 100% [...] 1 - PCV) 2015 Influenza Vaccine (#1) 2025 RSV Adult > 60+ Yrs or Pregn ant (1 - 1-dose 75+ series) 2025 Hepatitis B Vaccines Aged Out No long er eligible based on patient's age to complete this topic RSV Ped < 20 months Aged Out No longe r eligible based on patient's age to complete this topic Care Teams Ferry Engineer Relationship Specialty Start Date End Date Yuli Rosen MD PCP - General Internal Medicine 08/08/21
--- OUTSIDE RECORDS SUMMARY | 2025-01-09 06:55 | XMS_ITS | Clinical Summary ---
Author Organization [facility] Address [address] [place] [address] Care Team Providers Care Mine Safety Manager Name Role Phone Yuli Rosen MD Primary Care Provider [phone] Allergies No known active allergies Medications amLODIPine (NORVASC) 5 mg tablet Take 1 [...] with amlodipine. Coronary artery disease invo lving jena coronary artery of jena heart without angina pectoris 10/03/2023 Overview (06/15/2024): [...] from the normal sinus rhythm. Demand ischemia ([facility] V24, CMS/[facility] V28) 09/04 Overview (06/15/2024): 3/24 NSTEMI with rapid afib Osteoporosis 04/02/2022 Overview (06/15/2024): 10 T score spine -2.5 hip -3.1 Aortic stenosis 02/22/2022 Overview (06/15/2024): 8/ mild and AI, mild MS and MR 2/24 mild to mod COVID-19 virus infection 02/02/2022 Overview (06/15/2024): 8.24.22 Thoracic aortic aneurysm ([facility] V24) Overview (06/15/2024): 8/22 3.7 cm, mild dilatation Atrial fibrillation and flutter ([facility] V24, CM S/[facility] V28) 09/16/2021 Overview (06/15/2024): Anticoagulated with Xarelto Rhythm [...] her PCP at her next visit. Seizure (CMS/HCC V24, CMS/HCC V28) 09/16/2021 Overview (06/15/2024): With subarachnoid bleed Subarachnoid hematoma (CMS/HCC V24, CMS/HCC V28) 09/16/2021 Overview (06/15/2024): Secondary to aneurysm Fowler's esophagus 08/20/2018 Iron deficiency anemia 07/19/2018 Vulvar cancer, carcinoma (CMS/HCC V24, CMS/[facility] V 28) 12/08/2016 Overview (06/15/2024): Scheduled radical vulvectomy at [facility] Dr. 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 Lichen sclerosus 05/01/2013 Hypothyroidism 10/02/2012 Immunizations Name Administration Dates Next Due Diptheria & Tetanus, 6wks to less than 7yo 02/22 Surgical History Surgery Date Site/Laterality Comments OVARIAN CYST REMOVAL PROCEDURE: [place] OVARIAN CYSTECTOMY UNI/BI; COMMENT: laproscopic COLONOSCOPY 12/24/2014 PROCEDURE: HISTORICAL COLONOSCOPY; COMMENT: Diverticulosis, hemorrhoids ESOPHAGOGASTRODUODENOSCOPY 12/24/2014 PROCEDURE: MN ESOPHAGOGASTRODUODENOSCOPY TRANSORAL DIAGNOSTIC; COMMENT: Barretts esophagus, hiatal hernia, erosive gastritis OTHER SURGICAL HISTORY 12/29/2016 N/A PROCEDURE: MN VULVECTOMY RADICAL COMPLETE; COMMENT: vulvar carcinoma OTHER SURGICAL HISTORY PROCEDURE: HISTORY OTHER; COMMENT: post aneurysm coiling COLONOSCOPY 07/2018 PROCEDURE: HISTORICAL COLONOSCOPY Medical History Medical History Date Comments History of stroke 06/11/2010 DX:History of stroke; COMMENT: had left sided weakness, recovered completerly Hypertension DX:Hypertension Hypothyroidism 10/02/2012 DX:Hypothyroidis m COVID-19 virus infection 02/02/2022 DX:COVI D-19 virus infection; COMMENT: 02.01.22 Thoracic aortic aneurysm ([facility] V24) 02/02/2022 DX:Thoracic aortic aneurysm (HCC); COMMENT: 01/30 3.7 cm, mild dilatation Aortic stenosis 02/22/2022 DX:Aortic stenos is; COMMENT: 01/30 mild and AI, mild MS and MR Osteoporosis 04/02/2022 DX:Osteoporosis; COMMENT: 04/01 T score spine -2.5 hip -3.1 Demand ischemia ([facility] V24 , [facility] V28) 09/05/2023 DX:Demand ischemia (HCC); CO MMENT: 09/01 NSTEMI with rapid afib Family History [...] drink = 0.6 oz pur e alcohol) Comments Unknown Sex and Gender Information Value Date Recorded Sex Assigned at Not on file Legal Sex Female 7:00 AM EST Gender Identity Not on file Sexual Orientation [...] Health Maintenance Due Date Last Done Comments Zoster Vaccines (1 of 2) 1969 Pneumococcal Vaccine: 50+ Years (1 of 1 - PCV) 02/15/2000 DTaP,Tdap,and Td Vaccines (2 - Tdap) 02/23/2016 02/22/2006 COVID-19 Vaccine (3 - Modern a risk series) 11/04/2020 10/07/2020, 09/09/2020 Falls Risk Assessment 05/19/2022 Social Influencers of Health Screening 05/19/2022 Breast Cancer Screening 03/31/2024 03/31/20, 06/14/2018 Hypertension/CHF/CAD Annual BMP Blood Test 06/01/2024 06/01/2023 Depression Screening 06/11/2024 Influenza Vaccine (#1) 2025 RSV Immunization Adult Patients (1 - 1-dose 75+ series) 2025 Cholesterol Screening (Lipid Panel) 06/01/2028 06/01/2023 Colorectal [...] patient's age to complete this topic Meningococcal B Vaccine Aged Out No l onger eligible based on patient's age to complete [...] BMP Blood Test abstracted Historical Provider MD HEALTH MAINTENANCE Final Result * (ABNORMAL) Lipid panel (06/01/2023) LDL/HDL Ratio 2 0 - 4 Triglycerides 88 0 - 150 mg/dL Cholesterol 246(A) 0 - 200 mg/dL HDL 127 >=40 mg/dL LDL Cholesterol 102(A) 0 - 100 mg/dL Blood Venous blood specimen / Unknown Historical Provider LAB BLOOD ORDERABLES Wendy l Result * DXA BONE DENSITY STUDY 1+ SITS [...] IMPRESSION: IMPRESSION: Osteoporosis by WHO criteria. The [facility] Department of Internal Medicine recommends using National [...] screening schedule based on hanane Syed al., [facility] June 29, 2011 for patients with osteopenia [...] IMPRESSION: IMPRESSION: Osteoporosis by WHO criteria. The [facility] Department of Internal Medicine recommendsusing National Osteoporosis [...] screening schedule based on hanane Syed al., NEJMJanuary 2011 for patients with osteopenia (based on hip BMD T-score) is as follows: * advanced osteopenia (T scores -2.00 to -2.49), BMD testing every year * moderate osteopenia (T scores -1.50 to -1.99), BMD testing every 5years mild osteopenia or normal BMD (T scores -1.50 and higher), BMD testingevery 15 years Yuli Rosen MD IMG DXA PROCEDURES Final Result * SCREENING MAMMOGRAPHY BI 2-VIEW BREAST INC [...] interpreted with the aid of computer-aided detection. Comparison is made with 08/28/2014 and 03/12/2006. Breast parenchyma is composed of scattered fibroglandular densities. No new suspicious mass, architectural distortion, or suspicious [...] negative Yuli Rosen MD IMG XR PROCEDURES Final Result * Colonoscopy (07/30/2018) Colonoscopy no interpreta tion,abstr acted Anatomical Region Laterality Modality Other Historical Provider HEALTH MAINTENANCE Final Result * Hepatitis C Screening (05/01/2013) Hepatitis C Screening abstracted Historical Provider HEALTH MAINTENANCE Final Result from Last 3 Months or Most Recently Relevant to Health Maintenance Care Teams Mine Safety Manager Relationship Specialty Start Date End Date Yuli Rosen MD [address] [place] [address] PCP - General Internal Medicine 04/21/21
[2025-01-09 07:50] LABS: Hematocrit 34.6 % (37.0-47.0); Hemoglobin 10.9 g/dl (12.0-16.0); Imm Gran Abs Auto 0.03 X10*3/uL (0.00-0.03); Imm Gran Pct Auto 0.4 % (0.0-0.4); Lymphocytes Absolute Auto 1.4 X10*3/uL (1.2-4.9); Mean Corpuscular HGB Conc 31.5 g/dl (31.0-35.0); Mean Corpuscular Hemoglobin 27.5 pg (27.0-33.0); Mean Corpuscular Volume 87.4 fL (80.0-98.0); NRBC Abs Auto 0.000 X10*3/uL (0.0-0.012); NRBC Pct Auto 0.0 /100WBC (0.0-0.2); Platelet Count 272 X10*3/uL (160-400); Red Blood Count 3.96 X10*6/uL (4.20-5.50); White Blood Count 7.9 X10*3/uL (4.8-10.8)
[2025-01-09 08:11] LABS: Alanine Aminotransferase 23 U/L (0-31); Albumin Level 3.8 g/dL (3.5-5.0); Alkaline Phosphatase 106 U/L (39-117); Anion Gap 12 (12-20); Aspartate Amino Transferase 20 U/L (5-31); Blood Urea Nitrogen 22 mg/dL (9-16); Calcium 8.7 mg/dL (8.4-10.2); Carbon Dioxide 26 mmol/L (22-29); Chloride 110 mmol/L (96-108); Estimated Glomerular Filt Rate > 60; Potassium 3.9 mmol/L (3.3-5.1); Sodium 144 mmol/L (135-145); Total Protein 6.1 g/dL (6.5-8.0)
[2025-01-09 09:11] LABS: Free T4 (Free Thyroxine) 0.99 ng/dL (0.71-1.85)
== END 2025-01-09 06:53 | disposition home or self-care (01) ==
LOC: HO.MMNH3L 06:52
PROVIDERS: Visit Provider Student in an Organized Health Care Education/Training Program
DX: E03.9 Hypothyroidism, unspecified (principal)
CPT/HCPCS: 36415; 80053; 84439; 84443; 85025

== ENCOUNTER 2025-01-26 06:23 | Outpatient (REF) | payer OTHER, SELFPAY ==
[2025-01-26 06:26] LABS: MANUAL DIFF FLAG NO
[2025-01-26 06:40] LABS: Hematocrit 35.1 % (37.0-47.0); Hemoglobin 11.1 g/dl (12.0-16.0); Imm Gran Abs Auto 0.03 X10*3/uL (0.00-0.03); Imm Gran Pct Auto 0.4 % (0.0-0.4); Lymphocytes Absolute Auto 1.6 X10*3/uL (1.2-4.9); Mean Corpuscular HGB Conc 31.6 g/dl (31.0-35.0); Mean Corpuscular Hemoglobin 27.8 pg (27.0-33.0); Mean Corpuscular Volume 87.8 fL (80.0-98.0); NRBC Abs Auto 0.000 X10*3/uL (0.0-0.012); NRBC Pct Auto 0.0 /100WBC (0.0-0.2); Platelet Count 261 X10*3/uL (160-400); Red Blood Count 4.00 X10*6/uL (4.20-5.50); White Blood Count 7.6 X10*3/uL (4.8-10.8)
[2025-01-26 07:24] LABS: Cholesterol 129 mg/dL (<200); HDL Cholesterol 59 mg/dL (>40); Triglycerides 87 mg/dL (<150)
== END 2025-01-26 06:24 | disposition home or self-care (01) ==
LOC: HO.MMNH3L 06:23
PROVIDERS: Visit Provider Student in an Organized Health Care Education/Training Program
DX: I48.0 Paroxysmal atrial fibrillation (principal); I69.351 Hemiplegia and hemiparesis following cerebral infarction affecting right dominant side; I69.320 Aphasia following cerebral infarction
CPT/HCPCS: 36415; 80061; 85025